=== PATIENT | female | born 1970 | race American Indian/Alaskan Native ===

== ENCOUNTER 2019-02-18 08:53 | Emergency (ER) | payer OTHER ==
[2019-02-18 08:59] VITALS: BP 163/103
[2019-02-18] MEDS ORDERED: IBUPROFEN PO ONE (09:06)
[2019-02-18] MEDS ORDERED: PERCOCET 5/325 PO PRN (09:06)
[2019-02-18] MEDS ORDERED: PERCOCET 5/325 PO ONE (09:15)
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
== END 2019-02-18 09:47 | disposition home or self-care (01) ==
LOC: ED 08:53
DX: S39.012A Strain of muscle, fascia and tendon of lower back, initial encounter (principal); S49.92XA Unspecified injury of left shoulder and upper arm, initial encounter; G44.209 Tension-type headache, unspecified, not intractable; F17.200 Nicotine dependence, unspecified, uncomplicated; Z98.890 Other specified postprocedural states; Z88.8 Allergy status to other drugs, medicaments and biological substances; Z98.51 Tubal ligation status; Z79.899 Other long term (current) drug therapy; V49.49XA Driver injured in collision with other motor vehicles in traffic accident, initial encounter; Y93.89 Activity, other specified; Y92.488 Other paved roadways as the place of occurrence of the external cause; Y99.8 Other external cause status
CPT/HCPCS: 99282